=== PATIENT | male | born 1970 | race Caucasian/White ===

== ENCOUNTER 2022-07-18 15:26 | Observation (INO) | payer SELFPAY ==
[2022-07-18] VITALS (27 sets, daily range): BP systolic 124–168; BP diastolic 73–121; PULSE 85–123; RESP 11–26; TEMP 36.3–37; O2SAT 91–98; BMI 35.6
[2022-07-18] MEDS: EPINEPHrine HCL INJ 1 MG/ML AMPUL 0.3 MG IM (15:54)
[2022-07-18] MEDS: FAMOTIDINE 20 MG/2 ML VIAL IV PUSH (15:54)
[2022-07-18] MEDS: SODIUM CHLORIDE 0.9% IV 1,000 ML 999 ML IV CONT (15:55)
[2022-07-18] MEDS: diphenhydrAMINE HCl INJ 50 MG/ML VIAL IV PUSH (15:55)
[2022-07-18] MEDS: methylPREDNISolone SOD SUCC 125 MG VIAL IV PUSH (15:55)
--- NOTE | 2022-07-18 15:59 | ED.ALLEREA ---
HPI - Allergic Reaction General Chief complaint: Allergic Reaction Stated complaint: tongue swelling past 2 hours, does take lisinopril Time Seen by Provider: 07/18/22 15:37 History of Present Illness HPI narrative: Patient is a 52-year-old male with a history of hypertension presenting with tongue swelling. Patient states that he has had URI-like symptoms for the last several days. He has taken 2 COVID tests which have been negative. This afternoon he was taking a nap, when he suddenly felt like he could not swallow normally. He noticed that the right side of his tongue was swollen. This continued for 2 hours after having difficulty swallowing, he decided to come in for evaluation. States it has not continued to progress but it has stayed the same. He denies pain. He denies difficulty breathing. He denies prior episodes in the past. States he is on lisinopril. Related Data Home Medications Medication Instructions Recorded Confirmed atorvastatin 40 mg tablet 40 mg PO HS 07/18/22 07/18/22 levothyroxine 150 mcg tablet 150 mcg PO DAILY 07/18/22 07/18/22 omeprazole 20 mg capsule,delayed 20 mg PO DAILY 07/18/22 07/18/22 release sertraline 25 mg tablet 25 mg PO HS 07/18/22 07/18/22 Allergies Allergy/AdvReac Type Severity Reaction Status Date / Time bee pollen Allergy Swelling Verified 07/18/22 15:56 lisinopril Allergy Anaphylactic Verified 07/18/22 15:56 Shock Review of Systems Review of Systems: All systems reviewed & are unremarkable except as noted in HPI and below PMFSH Past Medical History Medical History (Updated 07/18/22 @ 23:04 by Jennifer Portillo NP) Anxiety Chronic GERD Hyperlipidemia Hypertension Hypothyroid Surgical History Surgical History (Updated 07/18/22 @ 23:00 by Jennifer Portillo NP) H/O wisdom tooth extraction S/P arthroscopic surgery of right knee Status post carpal tunnel release Right hand Family History Family History Father Hypertension Hypothyroid Mother Hypertension Hypothyroid Other Hypertension Lung cancer Social History Social History (Updated 07/18/22 @ 23:01 by Jennifer Portillo NP) Social History: The patient is and lives with his . The is the durable power sports attorney for healthcare. The patient has 1 son. 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 Patient occasionally smokes a cigar. The patient occasionally has an alcoholic beverage. He denies any marijuana or illicit drugs. Code status full code Smoking status: Never smoker Second hand tobacco smoke exposure: No Alcohol intake: current Drinks per week: 5 Substance use: never Substance use type: does not use Living arrangements: with family Occupation/Education: occupation Gender identity (if verbalized by the patient): Male Sexual Orientation (if Verbalized by the Patient): Straight or Heterosexual Spiritual care concerns: No Agree to blood products: Yes Exam Narrative: GENERAL: alert, anxious, nontoxic HEAD: Normocephalic, atraumatic. EYES: PERRLA and EOMI. ENT: R side of tongue swollen, handling secretions well, no posterior pharyngeal swelling, no lip swelling, Nares clear, no rhinorrhea or epistaxis. Mucous membranes moist. NECK: Supple. CHEST: Clear to auscultation. No respiratory distress. HEART: Regular rate and rhythm. No murmur heard. Normal peripheral pulses. ABDOMEN: Soft, nontender, nondistended, normal active bowel sounds. EXTREMITIES: Normal range of motion. No edema. SKIN: Warm, dry, no rash. NEURO: No focal deficits. Alert and oriented x3. PSYCH: Normal mood and affect. Course Course Emergency Course: Patient is a 52-year-old male presenting with tongue swelling. Patient is tachycardic and hypertensive on arrival. Exam remarkable for right-sided tongue swelling. Concern for angioedema. Will trial IV, Solu-Medrol, Benadryl, Pepcid. Also ordered FFP to treat a
[2022-07-18 16:07] LABS: Basophils Absolute Auto 0.1 K/mm3 (0.0-0.1); Basophils Percent Auto 0.8 % (0.2-1.2); Eosinophils Absolute Auto 0.5 K/mm3 (0-0.3); Hematocrit 43.8 % (42.0-52.0); Hemoglobin 14.1 g/dL (14.0-18.0); Immature Granulocyte Absolute 0.08 K/mm3 (0.00-0.031); Immature Granulocyte Percent A 0.7 % (0-0.5); Lymphocytes Absolute Auto 2.09 K/mm3 (0.9-3.2); Lymphocytes Percent Auto 18.7 % (18.3-44.2); Mean Corpuscular HGB Conc 32.2 g/dl (32-36); Mean Corpuscular Hemoglobin 28.5 pg (26-34); Mean Corpuscular Volume 88.5 fl (80-100); Monocytes Absolute Auto 1.4 K/mm3 (0.1-0.6); Monocytes Percent Auto 12.2 % (2.6-8.5); Neutrophils Absolute Auto 7.1 K/mm3 (1.3-6.7); Neutrophils Percent Auto 63.6 % (45.5-73.1); Platelet Count Result 439 k/mm3 (150-375); Red Blood Count 4.95 M/mm3 (4.6-6.20); Red Cell Distribution Width 13.8 % (11.5-14.5); White Blood Count 11.2 K/mm3 (4.5-10.0)
[2022-07-18 16:20] LABS: Anion Gap 16 mmol/L (8-16); Blood Urea Nitrogen 15 mg/dL (9-20); Calcium 9.8 mg/dL (8.4-10.2); Carbon Dioxide 24 mmol/L (22-30); Chloride 103 mmol/L (98-107); Estimated CRCL calculation 97 ml/min; Estimated Glomerular Filt Rate > 60; Glucose 92 mg/dL (65-110); Potassium 4.2 mmol/L (3.4-5.0); Sodium 143 mmol/L (137-145)
[2022-07-18] MEDS: SODIUM CHLORIDE 0.9% IV 250 ML 30 ML IV CONT (19:10)
[2022-07-18] MEDS: TUBING, BLOOD SET 1 EACH XX (19:29)
--- NOTE | 2022-07-18 20:34 | PM.IMHP ---
H&P: HPI History of Present Illness Date/Time: 07/18/22 20:34 Meds Home Medications and Allergies Home Medications Medication Instructions Recorded Confirmed Type atorvastatin 40 mg tablet mg 07/18/22 History levothyroxine 150 mcg tablet mcg 07/18/22 History omeprazole 20 mg capsule,delayed 20 mg PO DAILY 07/18/22 07/18/22 History release sertraline 25 mg tablet mg 07/18/22 History testosterone cypionate 200 mg/mL mg 07/18/22 07/18/22 History intramuscular oil Allergies Allergy/AdvReac Type Severity Reaction Status Date / Time bee pollen Allergy Swelling Verified 07/18/22 15:56 lisinopril Allergy Anaphylactic Verified 07/18/22 15:56 Shock Vital Signs Vital Signs - 24 hr 07/18/22 15:32 07/18/22 17:37 07/18/22 17:45 Temperature 97.3 F L Pulse Rate 123 H 117 H 98 Respiratory Rate 14 26 H 17 Blood Pressure 168/121 H Pulse Oximetry 98 96 95 Oxygen Delivery Room Air 07/18/22 18:00 07/18/22 18:09 07/18/22 18:10 Temperature Pulse Rate 100 94 92 Respiratory Rate 17 16 18 Blood Pressure 135/73 124/75 Pulse Oximetry 94 94 94 Oxygen Delivery 07/18/22 18:11 07/18/22 18:12 07/18/22 18:44 Temperature 97.8 F Pulse Rate 95 102 H 88 Respiratory Rate 18 18 11 L Blood Pressure 125/78 126/78 126/82 Pulse Oximetry 95 97 96 Oxygen Delivery 07/18/22 18:13 07/18/22 18:14 07/18/22 18:15 Temperature Pulse Rate 94 100 98 Respiratory Rate 16 16 17 Blood Pressure 135/81 126/82 Pulse Oximetry 95 95 93 Oxygen Delivery 07/18/22 18:30 07/18/22 18:45 07/18/22 19:00 Temperature 97.8 F Pulse Rate 85 88 85 Respiratory Rate 13 17 16 Blood Pressure 126/82 126/82 Pulse Oximetry 91 97 97 Oxygen Delivery 07/18/22 19:00 07/18/22 19:15 Temperature 98.1 F Pulse Rate 85 90 Respiratory Rate 15 20 Blood Pressure 126/82 136/88 Pulse Oximetry 95 97 Oxygen Delivery H&P: Results Labs Labs: Short CBC 09/07/22 Range/Units 15:55 WBC 11.2 H (4.5-10.0) K/mm3 Hgb 14.1 (14.0-18.0) g/dL Hct 43.8 (42.0-52.0) % Plt Count 439 H (150-375) k/mm3 [facility] 07/18/22 15:55 Sodium 143 Potassium 4.2 Chloride 103 Carbon Dioxide 24 BUN 15 Creatinine 1.00 Glucose 92 Calcium 9.8
--- NOTE | 2022-07-18 21:02 | PM.IMHP ---
H&P: HPI History of Present Illness Date/Time: 07/18/22 21:02 Chief Complaint: Allergic reaction Narrative: This is a 52-year-old male patient who has a history of hypertension and takes lisinopril for many years now. The patient stated that he has been having sinus congestion for at least the last several days. The patient is taken to COVID test at home and they have been negative. The patient was home today taking a nap and he suddenly felt like he could not swallow normally. He noticed that the right side of his face and tongue was swollen. Initially he thought that it was just due to his allergies. The patient denies difficulty breathing and was able to maintain his airway. The patient was not drooling. The patient has had no prior episodes like this in the past. Patient was given IV Pepcid, normal saline, epinephrine, Benadryl, Solu-Medrol and FFP. The patient is being admitted for observation status on the date of service 07/18/2022. Review of Systems Review of Systems: See HPI All systems reviewed & are unremarkable except as noted in HPI and below Constitutional: Constitutional: Reports as per HPI and Reports no additional constitutional complaints Eyes: Eyes: Reports as per HPI and Reports no additional eye complaints ENT: Reports system reviewed and no additional complaints, except as documented and Reports Normal hearing present Cardiovascular: Cardiovascular: Reports no additional cardiovascular complaints Respiratory: Respiratory: Reports no additional respiratory complaints and Reports no additional respiratory complaints Gastrointestinal: Gastrointestinal: Reports as per HPI and Reports no additional gastrointestinal complaints Musculoskeletal: Musculoskeletal: Reports no additional musculoskeletal complaints Integumentary/Breasts: Skin/Breast: Reports system reviewed and no additional complaints, except as docu and Reports as per HPI Neurologic: Reports system reviewed and no additional complaints, except as documented, Reports as per HPI and Reports Normal hearing present Psychiatric: Psychiatric: Reports no additional psychiatric complaints and Reports as per HPI Endocrine: Endocrine: Reports no additional endocrine complaints Hematologic/Lymphatic: Hematologic/Lymphatic: Reports no additional hematologic/lymphatic complaints Allergic/Immunologic: Allergic/Immunologic: Reports no additional allergic/immunologic complaints [facility] Past Medical History Medical History (Updated 07/18/22 @ 23:04 by Jennifer Portillo NP) Anxiety Chronic GERD Hyperlipidemia Hypertension Hypothyroid Surgical History Surgical History (Updated 07/18/22 @ 23:00 by Jennifer Portillo NP) H/O wisdom tooth extraction S/P arthroscopic surgery of right knee Status post carpal tunnel release Right hand Family History Family History Father Hypertension Hypothyroid Mother Hypertension Hypothyroid Other Hypertension Lung cancer Social History Social History (Updated 07/18/22 @ 23:01 by Jennifer Portillo NP) Social History: The patient is and lives with his . The is the durable power ip attorney for healthcare. The patient has 1 son. 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 Patient occasionally smokes a cigar. The patient occasionally has an alcoholic beverage. He denies any marijuana or illicit drugs. Code status full code Smoking status: Never smoker Second hand tobacco smoke exposure: No Alcohol intake: current Drinks per week: 5 Substance use: never Substance use type: does not use Living arrangements: with family Occupation/Education: occupation Gender identity (if verbalized by the patient): Male Sexual Orientation (if Verbalized by the Patient): Straight or Heterosexual Spiritual care concerns: No Agree to blood products: Yes Meds Home Medications and Allergies Home Medications Medication
--- NOTE | 2022-07-18 22:39 | ADMGEN ---
This patient, Rogelio Acosta, was admitted to [facility] Surg Room 331-02. Patient/family oriented to hospital policies and general routines including ID bracelet, bed and alarms, visiting hours, pain management, procedures, bathroom and other care routines, personal items, smoking policy, room service/diet, and visiting hours. Information on how to activate the Rapid Response Team has been discussed. Patient/Family are encouraged to report perceived risks to care and to ask questions if they do not understand what they are told or what they should do.
[2022-07-19] MEDS: methylPREDNISolone SOD SUCC 125 MG VIAL 60 MG IV PUSH ×2 (00:01→06:19)
[2022-07-19 05:56] VITALS: BP 138/82; PULSE 82; RESP 16; TEMP 36.2; O2SAT 95
[2022-07-19 06:09] LABS: Basophils Absolute Auto 0.1 K/mm3 (0.0-0.1); Basophils Percent Auto 0.6 % (0.2-1.2); Eosinophils Percent Auto 0.1 % (0-4.4); Hematocrit 41.7 % (42.0-52.0); Hemoglobin 13.6 g/dL (14.0-18.0); Immature Granulocyte Absolute 0.07 K/mm3 (0.00-0.031); Immature Granulocyte Percent A 0.8 % (0-0.5); Lymphocytes Absolute Auto 0.77 K/mm3 (0.9-3.2); Lymphocytes Percent Auto 8.7 % (18.3-44.2); Mean Corpuscular HGB Conc 32.6 g/dl (32-36); Mean Corpuscular Hemoglobin 28.7 pg (26-34); Mean Platelet Volume 9.7 fl (7.4-10.4); Monocytes Absolute Auto 0.2 K/mm3 (0.1-0.6); Monocytes Percent Auto 2.2 % (2.6-8.5); Neutrophils Absolute Auto 7.7 K/mm3 (1.3-6.7); Neutrophils Percent Auto 87.6 % (45.5-73.1); Platelet Count Result 416 k/mm3 (150-375); Red Blood Count 4.74 M/mm3 (4.6-6.20); Red Cell Distribution Width 13.5 % (11.5-14.5); White Blood Count 8.8 K/mm3 (4.5-10.0)
[2022-07-19] MEDS: LEVOTHYROXINE SODIUM 150 MCG TABLET PO (06:19)
[2022-07-19 06:24] LABS: Alanine Aminotransferase 37 U/L (6-50); Albumin Level 4.6 g/dL (3.5-5.1); Alkaline Phosphatase 95 U/L (38-126); Anion Gap 12 mmol/L (8-16); Aspartate Amino Transferase 29 U/L (17-59); Bilirubin,Total 0.4 mg/dL (0.2-1.3); Blood Urea Nitrogen 17 mg/dL (9-20); CRP 3.9 mg/dL (<1.0); Carbon Dioxide 24 mmol/L (22-30); Chloride 105 mmol/L (98-107); Estimated CRCL calculation 108 ml/min; Estimated Glomerular Filt Rate > 60; Glucose 145 mg/dL (65-110); Magnesium 2.2 mg/dL (1.6-2.3); Potassium 4.2 mmol/L (3.4-5.0); Sodium 141 mmol/L (137-145)
[2022-07-19 06:30] LABS: Lactic Acid Reflex 1.1 mmol/L (0.7-2.0)
[2022-07-19 06:57] LABS: Thyroid Stimulating Hormone Reflex 0.641 uIU/mL (0.465-4.68)
[2022-07-19] MEDS: FAMOTIDINE 20 MG/2 ML VIAL IV PUSH (08:37)
--- NOTE | 2022-07-19 09:59 | PM.DS ---
DS: Admitting Diagnosis Discharge Date 07/19 Admitting Diagnosis angioedema DS: Discharge Diagnosis Discharge Diagnosis (1) Angioedema: Code(s): T78.3XXA - Angioneurotic edema, initial encounter Status: Acute (2) Chronic GERD: Code(s): K21.9 - Gastro-esophageal reflux disease without esophagitis Status: Acute (3) Hyperlipidemia: Code(s): E78.5 - Hyperlipidemia, unspecified Status: Acute (4) Hypothyroid: Code(s): E03.9 - Hypothyroidism, unspecified Status: Acute (5) Hypertension: Code(s): I10 - Essential (primary) hypertension Status: Acute (6) Anxiety: Code(s): F41.9 - Anxiety disorder, unspecified Status: Acute DS: Summary Hospital Course Reason for hospitalization: This is a 52-year-old male patient who has a history of hypertension and takes lisinopril for many years now.? The patient stated that he has been having sinus congestion for at least the last several days.? The patient is taken to COVID test at home and they have been negative.? The patient was home today taking a nap and he suddenly felt like he could not swallow normally.? He noticed that the right side of his face and tongue was swollen.? Initially he thought that it was just due to his allergies.? The patient denies difficulty breathing and was able to maintain his airway.? The patient was not drooling.? The patient has had no prior episodes like this in the past.? Patient was given IV Pepcid, normal saline, epinephrine, Benadryl, Solu-Medrol and FFP.? The patient is being admitted for observation status on the date of service 07/18/2022. Hospital Course: patient improved with treatment in the ER. He was admitted for further observation for any worsening of the symptoms. He remained on Solu Medrol Benadryl along with Pepcid. Will discharge him with short course of prednisone. Along with Pepcid and Benadryl. His symptoms resolved with resolution of his tongue swelling. Most likely reason for this is lisinopril there is been taking for more than 25 years now. He will stop his lisinopril at this time. Will switch to only hydrochlorothiazide. Advised to start potassium supplementation due to risk of hypo kalemia related related to hydrochlorothiazide. Will have a BMP order for weekend follow-up with PCP. Time Spent with Patient Time attestation: Total time spent providing and/or coordinating discharge services: 45 minutes Exam Narrative: GENERAL: alert, anxious, nontoxic HEAD: Normocephalic, atraumatic. EYES: PERRLA and EOMI. ENT: tongue normal size,no posterior pharyngeal swelling, no lip swelling, Nares clear, no rhinorrhea or epistaxis.? Mucous membranes moist. NECK: Supple. CHEST: Clear to auscultation.? No respiratory distress. HEART: Regular rate and rhythm.? No murmur heard.? Normal peripheral pulses. ABDOMEN: Soft, nontender, nondistended, normal active bowel sounds. EXTREMITIES: Normal range of motion.? No edema. SKIN: Warm, dry, no rash. NEURO: No focal deficits.? Alert and oriented x3. PSYCH: Normal mood and affect. DS: Data Data Completed and Pending Labs on day of discharge: Labs from last 24 hours 07/19/22 07/19/22 07/19/22 05:57 05:57 05:57 WBC RBC Hgb Hct MCV MCH MCHC RDW Plt Count MPV Immature Gran % (Auto) Neut % (Auto) Lymph % (Auto) Schley % (Auto) Eos % (Auto) Baso % (Auto) Lymph # (Auto) Schley # (Auto) Eos # (Auto) Baso # (Auto) Abs Immat Gran (auto) Absolute Neuts (auto) Absolute Nucleated RBC Nucleated RBC % Sodium 141 Potassium 4.2 Chloride 105 Carbon Dioxide 24 Anion Gap 12 BUN 17 Creatinine 0.90 Estim Creat Clear Calc 108 Estimated GFR > 60 Glucose 145 H Lactic Acid 1.1 Calcium 10.0 Magnesium 2.2 Total Bilirubin 0.4 AST 29 ALT 37 Alkaline Phosphatase 95 C-Reactive Protein 3.9 H Total Prote
== END 2022-07-19 10:53 | disposition home or self-care (01) ==
LOC: ANHED 16:25 → ANH3MEDSUR 21:23
PROVIDERS: Nurse Practitioner; Admitting Provider Internal Medicine; Emergency Provider Emergency Medicine; Visit Provider Internal Medicine
DX: T78.3XXA Angioneurotic edema, initial encounter (principal); K21.9 Gastro-esophageal reflux disease without esophagitis; E78.5 Hyperlipidemia, unspecified; E03.9 Hypothyroidism, unspecified; I10 Essential (primary) hypertension; F41.9 Anxiety disorder, unspecified; R00.0 Tachycardia, unspecified; Z82.49 Family history of ischemic heart disease and other diseases of the circulatory system; Z83.49 Family history of other endocrine, nutritional and metabolic diseases; Z79.899 Other long term (current) drug therapy
CPT/HCPCS: 36415; 36430; 80048; 80053; 83605; 83735; 84443; 85025; 86140; 86900; 86901; 96361; 96372; 96374; 96375; 96376; 99285; A9270; G0378; J0171; J1200; J2930; J7030; J7050; P9017